=== PATIENT | female | born 1960 | race Caucasian/White ===

== ENCOUNTER 2017-06-20 09:47 | Day surgery (SDC) | payer OTHER ==
[~2017-06-20] VITALS: Ht 172.7 cm; Wt 106.4 kg
[2017-06-20] VITALS (7 sets, daily range): BP systolic 138–157; BP diastolic 66–80; PULSE 64–78; RESP 12–18; Ht 172.7 cm; Wt 106.4 kg
[~2017-06-20 09:47] MED LIST: BENA20TA48 PO; CEFAZOLIN 1 GM INJ ONE; GLIP5TAB13 PO; METF1000 PO; METO-335 PO
[2017-06-20] MEDS ORDERED: SPIR25TA PO (10:51)
[2017-06-20] MEDS ORDERED: GLIP5TAB13 PO (10:51)
[2017-06-20] MEDS ORDERED: PROP10TA6 PO (10:52)
--- NOTE | 2017-06-20 12:29 | HPN ---
Date/Time of Note Date/Time of Note DATE: 06/20/17 TIME: 12:29 Interval H&P Admission Note Pt. seen H&P reviewed: No system changes TAMICA HU MD Jun 20, 2017 12:29
--- NOTE | 2017-06-20 12:31 | SIPON ---
Date/Time of Note Date/Time of Note DATE: 06/20/17 TIME: 12:30 Operative Report Preoperative Diagnosis left thumb cmc arthritis Postoperative Diagnosis same Operation/Procedure Performed pryroshere interposition arthroplasty Surgeon dayton topographical field assistant staff Anesthesia: MAC Estimated blood loss: minimal Transfusion Required none Specimen none Grafts/Implants none Complications none TAMICA UH MD Jun 20, 2017 12:31
[2017-06-20] MEDS ORDERED: BUPIVACAINE 0.5% (SDV) 30 ML INJ ONE (12:41)
[2017-06-20] MEDS ORDERED: BUPIVACAINE 0.25% (MPF) 30 ML INJ ONE (12:41)
[2017-06-20] MEDS ORDERED: LIDOCAINE 2%/EPI 30 ML INJ ONE (12:41)
[2017-06-20] MEDS ORDERED: PROPOFOL 20 ML ONE (12:42)
[2017-06-20] MEDS ORDERED: FENTAnyl 50 MCG/ML VIAL ONE (12:42)
[2017-06-20] MEDS ORDERED: SUCCINYLCHOLINE CHLORIDE 100 MG/5 ML SYG IV ONE (12:42)
[2017-06-20] MEDS ORDERED: ONDANSETRON 4 MG INJ ONE (12:42)
[2017-06-20] MEDS ORDERED: ROCURONIUM 50 MG INJ ONE (12:42)
[2017-06-20] MEDS ORDERED: METOCLOPRAMIDE 10 MG INJ ONE (12:43)
[2017-06-20] MEDS ORDERED: FENTAnyl 50 MCG/ML VIAL IV PRN (13:00)
[2017-06-20] MEDS ORDERED: LABETALOL HCL 20MG INJ IV PRN (13:00)
[2017-06-20] MEDS ORDERED: ONDANSETRON 4 MG INJ IV PRN (13:00)
[2017-06-20] MEDS ORDERED: MEPERIDINE 25 MG INJ IV PRN (13:00)
[2017-06-20] MEDS ORDERED: hydrALAzine 20 MG INJ IV PRN (13:00)
--- NOTE | 2017-06-20 15:05 | RADRPT ---
PROCEDURE: Intraoperative imaging of the left hand with fluoroscopy. CLINICAL INDICATION: Left. Intraoperative. TECHNIQUE: 12 images of the left hand were obtained in the operating room with an image intensifie r. No radiologist was in attendance. Fluoroscopy time is 18 seconds. COMPARISON: No prior study is available for comparison. FINDINGS: Images demonstrate placement of a surgical implant the base of the first metacarpal. IMPRESSION: 1. Intraoperative imaging of the left hand. RPTAT: QQ .Suhas Steel MD, MD Date Time Electronically viewed and signed by .Suhas Steel MD, MD on 06/20/2017 15:04 .R/
[2017-06-20] MEDS: FENTAnyl 50 MCG/ML VIAL IV PRN ×2 (15:07→15:12)
--- NOTE | 2017-06-20 15:32 | OPR ---
DATE OF OPERATION: 06/20/2017 PREOPERATIVE DIAGNOSIS: Advanced osteoarthritis, CMC joint left thumb. POSTOPERATIVE DIAGNOSIS: Advanced osteoarthritis, CMC, joint left thumb. PROCEDURE: PyroSphere interposition resection arthroplasty CMC joint left thumb. PAST MEDICAL HISTORY: We had previously done the same procedure on the right, which she had liked and came back for the opposite side because the left side became degenerative after the successful procedure on the right. SURGICAL PAUSE: I reexamined the patient in the pre-op holding area. We confirmed the operative procedure and planned. I grace in the surgical incision. I showed the drawn surgical incision and confirmed the operative procedure and plan. INFORMED CONSENT: At the time we scheduled the operative procedure, we discussed with the patient the risks and hazards of surgery, talking about operative mortality, wound infection, nerve injury, good result, and potential complications. The patient said she understood the procedure because she had had it done on the opposite right hand and was pleased. SURGEON: Joseph Cote MD PRODUCTION MECHANIC TIN CANS: pearl maker, Courtney. ANESTHESIA: General anesthetic by the anesthesiologist. Local anesthetic by this surgeon. PROCEDURE: The patient was taken to surgery, anesthetized as above, sterile prep and drape was performed. A dorsal longitudinal incision made over the CMC joint and the proximal thumb metacarpal shaft and the distal trapezium subperiosteal exposed. I took care to look for and protect fibers of the superficial radial nerve, bluntly dissecting at the plane and appeared to keep it safe in the soft tissue. I exposed the CMC joint and opened it. Subperiosteal exposed the thumb metacarpal and the distal trapezium. With a saw I resected the base of the thumb metacarpal and then the distal end of the trapezium. I looked carefully to make sure that every bit of bone was removed and there was no bone left behind the thumb metacarpal or the trapezium. Th E little hooks of the saddle joints were excised carefully and looked for. I took x-rays at this point to double check to make sure there was no hidden retained bone. Using instruments, all [place], [place], we created opposing cups on the trapezium and the thumb metacarpal and finished them with the provided reamers from the PyroSphere set. Dropped in a trial and selected a 40 trial was the best fit. I dropped in lidocaine with epinephrine and let it soak five minutes. Removed the lidocaine and epinephrine and coated the cups with a little bone wax. Dropped in a 40 PyroSphere interposition and it fit well. Closed the joint capsule, with Vicryl suture. Closed the skin with subcuticular Vicryl. Put in a bulky dressing and splint. X-rays documented the good position of the PyroSphere not dislocated. I plan to keep the patient protected in cast splint, thumb spica splint, to get the implant well encapsulated. One reported complication of these devices is dislocation. I have had two dislocate very early in the first week, none late, but I am careful to keep it well mobilized two months so that the scarring will encapsulate the implant and add security. What is the ultimate dislocation force of these implants? Response, everybody is different. We tell everybody to be a little careful with them, but there is no consistent way to know how much force it would take to pop this out if the patient abused the hand. DISCHARGE MEDICATION: 1. Hydrocodone. 2. Acetaminophen. 3. Keflex. PLAN: Follow up will be in our office in a week. The operative procedure was around an hour. Blood loss was minimal. Dictated By: Joseph Cote MD /rafael/catia /Document#: [id number] HENRY
== END 2017-06-20 16:28 | disposition home or self-care (01) ==
LOC: SDS 09:47
PROVIDERS: ATTEND Orthopaedic Surgery Hand Surgery
DX: M19.042 Primary osteoarthritis, left hand (principal); I25.10 Atherosclerotic heart disease of native coronary artery without angina pectoris; E11.9 Type 2 diabetes mellitus without complications; J45.909 Unspecified asthma, uncomplicated; E66.9 Obesity, unspecified; Z68.35 Body mass index [BMI] 35.0-35.9, adult
CPT/HCPCS: 26250; 73130; 82962; J0690; J2175; J2405; J2765; J3010; Z7512; Z7610; J7999

== ENCOUNTER 2018-11-15 08:18 | Day surgery (SDC) | payer OTHER ==
[2018-11-14 11:50] VITALS: BMI 34.5
[2018-11-15] VITALS (14 sets, daily range): BP systolic 109–145; BP diastolic 60–80; PULSE 80–118; RESP 14–26; Ht 170.2 cm; Wt 101.4 kg
[~2018-11-15] VITALS: Ht 170.2 cm; Wt 101.4 kg
[~2018-11-15 08:18] MED LIST changes: -BENA20TA48 PO; -CEFAZOLIN 1 GM INJ ONE; -METF1000 PO; +METF100010 PO; -METO-335 PO; +PROP10TA6 PO; +SEVOFLURANE 15 MIN ONE; +SPIR25TA PO
[2018-11-15] MEDS ORDERED: METF850T13 PO (08:47)
[2018-11-15] MEDS ORDERED: SPIR25TA PO (08:47)
--- NOTE | 2018-11-15 10:14 | HPN ---
Date/Time of Note Date/Time of Note DATE: 11/15/18 TIME: 10:14 Interval H&P Admission Note Pt. seen H&P reviewed: No system changes CONY LAZARO DPM Nov 15, 2018 10:14
--- NOTE | 2018-11-15 10:39 | PREAC ---
Date/Time of Note Date/Time of Note DATE: 11/15/18 TIME: 10:36 Anesthesia Eval and Record Evaluation Time Pre-Procedure Interview DATE: 11/15/18 TIME: 10:36 Age 57 Sex female NPO: 8 hrs Preoperative diagnosis Rt foot Praveena deformity Planned procedure Rt foot Praveena deformity correction Past Medical History Past Medical History: Includes Cardio: HTN, Dyslipidemia Endo: Diabetes Musculoskeletal: Osteoarthritis Hepatic: Alcohol abuse, Cirrhosis GI: Morbid obesity Heme: Coagulation disorder, Thrombocytopenia Surgery & Anesthesia Issues No known issue Meds Anticoagulation: No Beta Linda within 24 hr: No Reason Beta Linda not given: Pt. not on B-Linda Reported Medications Metformin Hcl* (Metformin Hcl*) 850 Mg Tablet, 850 MG PO WITH BREAKFAST DINNE, #60 TAB 11/15/18 Spironolactone* (Aldactone*) 25 Mg Tablet, 25 MG PO DAILY, #30 TAB 11/15/18 Discontinued Reported Medications Propranolol Hcl* (Propranolol Hcl*) 10 Mg Tablet, 10 MG PO BID, TAB 06/20/17 Spironolactone* (Aldactone*) 25 Mg Tablet, 25 MG PO DAILY, #30 TAB 06/20/17 Glipizide* (Glipizide*) 5 Mg Tablet, 5 MG PO DAILY, TAB 06/20/17 Metformin Hcl* (Metformin Hcl*) 1,000 Mg Tablet, 1000 MG PO BID, TAB 08/18/15 Meds reviewed: Yes Allergies Coded Allergies: ciprofloxacin (Verified Allergy, Unknown, 11/15/18) codeine (Verified Allergy, Unknown, 11/15/18) Allergies Reviewed: Yes Labs/Studies Labs Reviewed: Reviewed by anesthesiologist test: N/A Pre-procedure Exam Last vitals Vital Signs Date Temp Pulse Resp B/P (MAP) Pulse Ox O2 O2 Flow FiO2 Time Delivery Rate 11/15/18 98.4 80 18 126/60 99 08:35 (82) Airway: Adequate mouth opening, Adequate thyromental dist Mallampati: Mallampati III Teeth: Normal Lung: Normal Heart: Normal ASA Physical Status ASA physical status: 3 Emergency: None Planned Anesthetic General/MAC: LMA Planned Pain Management Single shot nerve block, Parenteral pain med Pre-operative Attestations Prior to commencing anesthesia and surgery, the patient was re-evaluated, there was verification of: *The patient's identity *The results of appropriate recent lab work and preoperative vital signs *The above evaluation not changing prior to induction *Anesthetic plan, risk benefits, alternative and complications discussed with patient/family; questions answered; patient/family understands, accepts and wishes to proceed. JULIO C EDWARDS MD Nov 15, 2018 10:39
[2018-11-15] MEDS ORDERED: MIDAZOLAM 1 MG/ML 2 ML INJ ONE (10:52)
[2018-11-15] MEDS ORDERED: DEXAMETHASONE 4 MG/ML 1 ML INJ ONE (11:24)
[2018-11-15] MEDS ORDERED: POVIDONE IODINE 10% 28.4 GM OINT ONE (11:24)
[2018-11-15] MEDS ORDERED: BUPIVACAINE 0.5% (SDV) 30 ML INJ ONE (11:24)
[2018-11-15] MEDS ORDERED: POLYMYXIN/BACITRACIN 1L IRRIG IRR ONE ×2 (11:37→12:22)
[2018-11-15] MEDS ORDERED: ROPIVACAINE 0.5 % 30 ML VIAL ONE (12:13)
--- NOTE | 2018-11-15 12:27 | OPR ---
Date/Time of Note Date/Time of Note DATE: 11/15/18 TIME: 12:27 Operative Report Procedure Date: Nov 15, 2018 Preoperative Diagnosis Praveena deformity of the RIGHT foot RIGHT heel pain Postoperative Diagnosis Praveena deformity of the RIGHT foot RIGHT heel pain Operation/Procedure Performed Surgical repair of Praveena deformity of the RIGHT heel Surgeon see signature line Forensic Manager None Anesthesia Type: general Estimated Blood Loss: minimal Transfusion none Specimen Bone from RIGHT heel. Grafts/Implants none Tubes/Drains None Complications none Pt Condition Post Procedure: stable Disposition: PACU Indications This is a pleasant 57 year old female patient who has been suffering with RIGHT heel pain in the back with large bony bump for many months; getting worse with shoes and pressure. Patient has tried different types of shoes and activities but has not been able to get pain relief. She states that she can only tolerate shoes with no heel counter. Recommendation was made for surgical correction of RIGHT foot Praveena deformity. Risks and complications of this type of surgery was discussed with patient in great detail. Risks and complications discussed include, but are not limited to, postoperative infection, postoperative pain, chronic pain and disability, hardware failure, malunion, nonunion, delayed union, failure of surgery to correct the problem, need for additional surgical procedures, deep venous thrombosis, gait disturbance, problems with shoegear, limitation of activities, limb loss and loss of life. Patient understands the discussion and agrees to the procedure. An informed consent was obtained, signed and placed in the chart. No guarantee or warrantee was given or implied as to the outcome of the procedure either in verbal or written form. Procedure Description The patient was seen in the preoperative unit. The proposed surgery was discussed with patient in great detail. Risks and complications of this type of surgery was discussed with patient in great detail. Opportunity was given to patient to ask questions and all questions were answered. The patient acknowledges understanding of the discussion. An informed consent was then obtained, signed and placed in the chart. Patient was taken to the operating room and was placed on the operating table in the supine position. All bony prominences were padded properly. A timeout was called by the circulating nurse. Everyone in the operating room was agreeable to the timeout. The patient was then placed under general anesthesia by the anesthesiologist. A thigh tourniquet was applied to the RIGHT thigh. The right lower extremity was scrubbed, prepped, and draped in the usual aseptic manner. An Esmarch bandage was utilized to exsanguinate the RIGHT lower extremity and t he pneumatic tourniquet was inflated to 300mmHg. Attention was directed to the posterior aspect of the right heel. An S-type i ncision was made over the posterior aspect of the right heel just over the bony prominence that was present. This was done using a #10 blade. Bleeders were cauterized as necessary. Vital neurovascular structures were identified and protected. Bleeders were cauterized as necessary. Dissection continued down to the peritenon and the Achilles tendon insertion point. The Achilles tendon was transected longitudinally and mediolaterally in a upside down Y pattern. Next, the tendon was dissected off of the bony prominence that was present. Bony prominence was found to be large. An osteotome and mallet was used to remove the bony prominence were flush posterior calcaneus. Rough edges were smoothed using a power rasp. The wound was flushed with copious muscle sterile normal saline. Next, I made 4 holes for insertion of bone anchors and tape suture for reapproximation of the Achilles tendon at the posterior calcaneus. This was done systematically with the suture anchor placed first. The sutures were then ran through the distal aspect of the Achilles tendon. Next, the tendon was brought to the posterior aspect of the calcaneus and tacked down with 2 other anchors. The remaining incision through the Achilles tendon was closed using 4- 0 Vicryl suture in simple suture technique. The subcutaneous layer was closed using 4-0 Vicryl and the skin was closed using 5-0 Monocryl in subcuticular stitch pattern. Patient had received a popliteal block by the anesthesiologist prior to the start of the case. Sterile dressing was applied. Posterior splint was applied. The thigh tourniquet was deflated at this time and prompt hyperemic response was noted to digits of the right foot. The patient will be taken to the recovery with vital signs stable and vascular status intact to the right lower extremity. Patient will be discharged home after postoperative monitoring. Postoperative orders have been written. Patient is to remain nonweightbearing on the right lower extremity with crutches. I will see the patient in 1 week in the office for postoperative evaluation. CONY LAZARO DPM Nov 15, 2018 12:27
--- NOTE | 2018-11-15 12:27 | SIPON ---
Date/Time of Note Date/Time of Note DATE: 11/15/18 TIME: 12:26 Operative Report Preoperative Diagnosis Right foot Praveena deformity Right heel pain Right Achilles tendinosis Morbid obesity Postoperative Diagnosis Right foot Praveena deformity Right heel pain Right Achilles tendinosis Morbid obesity Operation/Procedure Performed Right foot Praveena deformity repair Application of posterior splint to right LE Surgeon see signature line first assistant None Anesthesia: general Estimated blood loss: minimal Transfusion Required none Specimen Bone and tendon right foot Grafts/Implants none Complications none CONY LAZARO DPM Nov 15, 2018 12:27
[2018-11-15] MEDS ORDERED: GLYCOPYRROLATE 0.4 MG INJ ONE (12:30)
[2018-11-15] MEDS ORDERED: ROCURONIUM 50 MG INJ ONE (12:30)
[2018-11-15] MEDS ORDERED: NEOSTIGMINE 3 MG/3 ML SYRINGE ONE (12:30)
[2018-11-15] MEDS ORDERED: PROPOFOL 20 ML ONE (12:30)
[2018-11-15] MEDS ORDERED: CEFAZOLIN 1 GM INJ ONE (12:30)
[2018-11-15] MEDS ORDERED: ETOMIDATE 20 MG INJ ONE (12:30)
[2018-11-15] MEDS ORDERED: LIDOCAINE 2% (SDV) 5 ML INJ ONE (12:30)
[2018-11-15] MEDS ORDERED: ONDANSETRON 4 MG INJ ONE (12:31)
--- NOTE | 2018-11-15 12:43 | PAC ---
Date/Time of Note Date/Time of Note DATE: 11/15/18 TIME: 12:42 Post-Anesthesia Notes Post-Anesthesia Note Last documented vital signs Vital Signs Date Temp Pulse Resp B/P (MAP) Pulse Ox O2 O2 Flow FiO2 Time Delivery Rate 11/15/18 99.0 12:40 11/15/18 80 18 126/60 99 08:35 (82) Activity: WNL Respiratory function: WNL Cardiovascular function: WNL Mental status: Baseline Pain reasonably controlled: Yes Hydration appropriate: Yes Nausea/Vomiting absent: Yes Comments BP:134/65, P:102, spo2:100%, T:99,8 JULIO C EDWARDS MD Nov 15, 2018 12:43
[2018-11-15] MEDS ORDERED: DIPHENHYDRAMINE 50 MG INJ IV PRN (13:00)
[2018-11-15] MEDS ORDERED: LABETALOL HCL 20MG INJ IV PRN (13:00)
[2018-11-15] MEDS ORDERED: METOCLOPRAMIDE 10 MG INJ IV PRN (13:00)
[2018-11-15] MEDS ORDERED: MEPERIDINE 25 MG INJ IV PRN (13:00)
[2018-11-15] MEDS ORDERED: ONDANSETRON 4 MG INJ IV PRN (13:00)
[2018-11-15] MEDS ORDERED: FENTAnyl 50 MCG/ML VIAL IV PRN (13:00)
== END 2018-11-15 16:45 | disposition home or self-care (01) ==
LOC: SDS 08:18
PROVIDERS: ATTEND Podiatrist Foot & Ankle Surgery
DX: M21.6X1 Other acquired deformities of right foot (principal); E11.9 Type 2 diabetes mellitus without complications; I10 Essential (primary) hypertension; E78.5 Hyperlipidemia, unspecified
CPT/HCPCS: 28118; 71045; 73630; 82962; 88304; 88311; J0690; J2250; J2405; J2710; J2795; J3010; Z7512; Z7610; J1100